=== PATIENT | female | born 1945 | race Caucasian/White ===

== ENCOUNTER → 2017-08-14 | Outpatient (CLI) | payer MEDICARE ==
[~2017-08-14] MED LIST: ATORVASTATIN CA20 MG PO; BUPROPION PO; FLAGYL500 MG PO; LISINOPRIL10 MG PO; MELOXICAM PO; PANTOPRAZOLE SO40 MG PO; PEPCID20 MG PO; TRAVATAN Z5 ML; TRAVATAN Z5 ML OP
--- NOTE | 2017-08-14 14:42 | Diagnostic Imaging Report ---
EXAM: DXA BONE DENSITY INDICATIONS: DISORDER OF BONE COMPARISON: None. FINDINGS: Proximal left femur total bone mineral density (BMD) (g/cm2):0.957 Femur T-score (standard deviation relative to young adult mean BMD): 0.1 Femur Z-score (standard deviation relative to age-matched control group):1.6 Proximal left femur neck bone mineral density (BMD) (g/cm2):0.709 Femur T-score (standard deviation relative to young adult mean BMD): -1.3 Femur Z-score (standard deviation relative to age-matched control group):0.5 Lumbar bone mineral density (BMD) (g/cm2):1.139 Lumbar T-score (standard deviation relative to young adult mean BMD): 0.8 Lumbar Z-score (standard deviation relative to age-matched control group):3.0 Change since prior exam (%): Femur:Not applicable. Spine:Not applicable. Change since oldest prior exam (%): Femur:Not applicable. Spine:Not applicable. CONCLUSION: 1. Bone mineral density in the left femur is classified as osteopenia. Fracture risk is increased. 10 year major osteoporotic fracture risk 9.3% 2. Bone mineral density in the spine is classified as normal. Fracture risk is not increased. World Health Organization Classification: *The Z-score is provided for informational purposes. The T-score is preferable for clinical decisions. When comparing exams, a change of >4% is considered statistically significant. SUGGESTED RECOMMENDATIONS: Normal \T\ Osteopenia:Consideration should be given to use of calcium supplementation, daily multiple vitamins and adequate exercise, as preventive measures against osteoporosis, if clinically indicated. Osteoporosis \T\ Severe Osteoporosis:In addition to the above, consideration should be given to medical therapy against osteoporosis, if clinically indicated. Donald Isidro M.D. Dictated by: Donald Isidro M.D. on 08/14/2017 at 14:51 Electronically approved by: Donald Isidro M.D. on 08/14/2017 at 14:51
--- NOTE | 2017-08-28 08:24 | Diagnostic Imaging Report ---
#[id number] - [id number] #BILATERAL DIGITAL SCREENING MAMMOGRAM WITH CAD: 08/14/2017 CLINICAL: Routine screening. Comparison is made to exam dated: 03/10/2016 mammogram - [facility]. Current study contains 4 films. The tissue of both breasts is extremely dense, which lowers the sensitivity of mammography. Current study was also evaluated with a Computer Aided Detection (CAD) system. There is a benign calcification in both breasts. No significant masses, calcifications, or other findings are seen in either breast. There has been no significant interval change. IMPRESSION: BENIGN There is no mammographic evidence of malignancy. A 1 year screening mammogram is recommended. The patient will be notified by letter of the results. Camden larson/kandace:08/27/2017 10:06:08 Recovery Advocate: Marisa CAI)(Denisha), [facility] letter sent: Compared to Prior B9 Mammogram BI-RADS: 2 Benign
== END ==
LOC: DX 13:21
PROVIDERS: ATTEND Internal Medicine
DX: M89.9 Disorder of bone, unspecified (principal)
CPT/HCPCS: 77067; 77080